=== PATIENT | female | born 1940 | race Caucasian/White ===

== ENCOUNTER 2016-05-30 16:24 | Emergency (ER) | payer MEDICARE, OTHER ==
--- NOTE | 2016-05-30 16:33 | ED.PDOC ---
History of Present Illness - General Chief Complaint: General Stated Complaint: sob Time Seen by Provider: 05/30/16 16:31 Source: patient, RN notes reviewed, Vital Signs reviewed, family - daughter Exam Limitations: no limitations - History of Present Illness Initial Comments: Ms. Vivar 75 y/o female with hx of copd/asthma daughter stated that she had started having sob since yesterday and got worse today using her breathing treatment xopenex multiple times today without relief. Timing/Duration: getting worse, other - 35 hours Severity: severe Improving Factors: nothing Worsening Factors: nothing Associated Symptoms: other - anxious Allergies/Adverse Reactions: Allergies Thiothixene [From Navane] Allergy (Unknown, Verified 04/28/16 18:53) Zolpidem [From Ambien] Allergy (Unknown, Verified 04/28/16 18:53) Diphenhydramine [From Benadryl] Adverse Reaction (Mild, Verified 04/28/16 18:53) Other Pt states that it makes her "loopy" per nurses notes. Temazepam [From Restoril] Adverse Reaction (Verified 04/28/16 18:53) Home Medications: Ambulatory Orders Arformoterol Tartrate [Brovana] 1 puff IN BID 10/30/13 Budesonide Inhaler [Pulmicort Flexhaler] 2 puff IN BID 10/30/13 Calcium Carbonate-Cholecalcife [Caltrate 600+D 600-800 mg-Unit] 1 tab PO BID Citalopram Hydrobromide [Celexa] 20 mg PO DAILY 10/30/13 Clopidogrel Bisulfate [Plavix] 75 mg PO DAILY 10/30/13 Coenzyme [id number] Oil-Vitamin [Co-Q 10 Norton-3 Fish Oil] 1 cap PO DAILY Furosemide [Lasix] 20 mg PO GOPAL-OTH-DAY 10/30/13 Levalbuterol Nebs [Xopenex NEBS] 1.25 mg NEB Q4H PRN 10/30/13 Levothyroxine Sodium [Synthroid] 125 mcg PO ACBK 10/30/13 Multiple Vitamins W/ Minerals [Centrum Silver] 1 ea PO DAILY 10/30/13 Olmesartan Medoxomil [Benicar] 40 mg PO DAILY 10/30/13 Pantoprazole Sodium [Protonix] 40 mg PO DAILY 10/30/13 Ascorbic Acid [Vitamin C] 500 mg PO BID 12/11/15 Cholecalciferol [Vitamin D-3] 2,000 unit PO DAILY 12/11/15 Cyanocobalamin [B-12 Compliance Injection] 1,000 mcg INJ MONTHLY 12/11/15 Roflumilast [Daliresp] 500 mcg PO DAILY 12/11/15 Metoprolol Tartrate 100 mg PO DAILY 12/13/15 Spiriva Respimat 2 puff INH DAILY 12/14/15 guaiFENesin ER TAB [Mucinex Tab] 600 mg PO BID #14 tab 12/14/15 Amlodipine Besylate 5 mg PO DAILY 05/30/16 Montelukast Sodium [Singulair] 10 mg PO DAILY 05/30/16 Zoledronic Acid [Zometa] 4 mg IV .[id number] 05/30/16 Review of Systems - Review of Systems Constitutional: States: no symptoms reported EENTM: States: no symptoms reported Respiratory: States: see HPI, short of breath Cardiology: States: palpitations Gastrointestinal/Abdominal: States: no symptoms reported, other - history of lower gi bleeding colonoscopy-bleeding internal hemorroids 2 weeks ago Genitourinary: States: no symptoms reported Past Medical History (General) - Patient Medical History Hx Seizures: No Hx Stroke: Yes Hx Asthma: Yes Hx of COPD: Yes Hx Cardiac Disorders: Yes - [place], stent Hx Congestive Heart Failure: Yes Hx Pacemaker: No Hx Hypertension: Yes Hx Thyroid Disease: Yes Hx Diabetes: No Hx Gastroesophageal Reflux: Yes 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 Hx Cancer: Yes - bone, breast Hx MRSA: No Surgical History: cholecystectomy - nephrectomy right,tahbso, other Other Surgeries:: cardiac stent, thyroidectomy,left mastectomy(breast cancer- post chemo/radn - Vaccination History Hx Tetanus, Diphtheria Vaccination: Yes Hx Influenza Vaccination: Yes Hx Pneumococcal Vaccination: Yes - Social History Hx Tobacco Use: No Hx Alcohol Use: No Hx Substance Use: No Hx Physical Abuse: No Hx Emotional Abuse: No - Activities of Daily Living Patient Lives Alone: No - with son Grooming Ability: Independent Eating (Feeding) Ability: Independent Toileting Ability: Standby Assistance Family Medical History - Family History Mother Family History: No Known Hx Family Congestive Heart Failure: Yes Hx Family Diabetes: Yes Father Living Status: Hx Family Asthma: No Hx Family Congestive Heart Failure: No Hx Family Hypertension: No Hx Family Stroke: No Hx Family Diabetes: No Hx Family Cancer: Yes Physical Exam - Physical Exam General Appearance: Alert, Anxious, Restless Ears, Nose, Throat: hearing grossly normal, normal ENT inspection, normal pharynx Neck: non-tender, supple, normal inspection, carotid bruit - bilateral Respiratory: decreased breath sounds, accessory muscle use, other - moderate respiratory distress Cardiovascular/Chest: normal peripheral pulses, no gallop, no murmur, tachycardia - HR-127 Gastrointestinal/Abdominal: normal bowel sounds, non tender, soft, no organomegaly Back Exam: no CVA tenderness, no vertebral tenderness Extremity: no pedal edema, no calf tenderness, normal capillary refill Neurologic: alert, oriented x 3 Skin Exam: normal color, warm/dry Lymphatic: no adenopathy Progress - Results/Orders Results/Orders: 05/30/16 16:36 SVN/Updraft Therapy .ONCE 05/30/16 17:15 EKG STAT 05/31/16 09:00 Updrafts Daily Laboratory Results WBC 18.6 K/mm3 (4.8-10.8) H 05/30/16 16:35 RBC 3.89 M/mm3 (4.20-5.40) L 05/30/16 16:35 Hgb 11.9 gm/dL (12.0-16.0) L 05/30/16 16:35 Hct 36.3 % (36.0-47.0) 05/30/16 16:35 MCV 93.3 fl (81.0-99.0) 05/30/16 16:35 MCH 30.5 pg (27.0-31.0) 05/30/16 16:35 MCHC 32.8 g/dL (33.0-37.0) L 05/30/16 16:35 RDW 14.1 % (11.5-14.5) 05/30/16 16:35 Plt Count 350 K/mm3 (130-400) 05/30/16 16:35 MPV 7.7 fl (7.40-10.4) 05/30/16 16:35 Absolute Neuts (auto) 13.30 K/uL (1.8-6.8) H 05/30/16 16:35 Absolute Lymphs (auto) 3.30 K/uL (1.0-3.4) 05/30/16 16:35 Absolute Monos (auto) 1.80 K/uL (0.2-0.8) H 05/30/16 16:35 Absolute Eos (auto) 0.10 K/uL (0.0-0.4) 05/30/16 16:35 Absolute Basos (auto) 0.10 K/uL (0.0-0.1) 05/30/16 16:35 Neutrophils % 71.2 % (42.0-78.0) 05/30/16 16:35 Lymphocytes % 17.7 % (20.0-50.0) L 05/30/16 16:35 Monocytes % 9.9 % (2.0-9.0) H 05/30/16 16:35 Eosinophils % 0.6 % (1.0-5.0) L 05/30/16 16:35 Basophils % 0.6 % (0.0-2.0) 05/30/16 16:35 Differential Comment Cancelled 05/30/16 16:35 RBC Morphology Cancelled 05/30/16 16:35 PT 11.8 SECONDS (9.4-12.5) 05/30/16 16:35 INR 1.050 05/30/16 16:35 PTT (SP) 36.8 SECONDS (25.1-36.5) H 05/30/16 16:35 D-Dimer, Quantitative 324 ng/mL (0-230) H* 05/30/16 16:35 Sodium 140 mmol/L (135-145) 05/30/16 16:35 Potassium 3.4 mmol/L (3.6-5.0) L 05/30/16 16:35 Chloride 104 mmol/L (101-111) 05/30/16 16:35 Carbon Dioxide 27 mmol/L (21-31) 05/30/16 16:35 Anion Gap 12.4 (12-18) 05/30/16 16:35 BUN 23 mg/dL (7-18) H 05/30/16 16:35 Creatinine 1.67 mg/dL (0.6-1.3) H 05/30/16 16:35 BUN/Creatinine Ratio 13.8 (10-20) 05/30/16 16:35 Random Glucose 188 mg/dL (70-105) H 05/30/16 16:35 Serum Osmolality 288.1 mOsm/L (275-295) 05/30/16 16:35 Calcium 9.3 mg/dL (8.4-10.2) 05/30/16 16:35 Magnesium 2.2 mg/dL (1.8-2.5) 05/30/16 16:35 Total Bilirubin 0.5 mg/dL (0.2-1.0) 05/30/16 16:35 Direct Bilirubin 0.1 mg/dL (0-0.2) 05/30/16 16:35 Indirect Bilirubin 0.4 mg/dL (0.2-0.8) 05/30/16 16:35 AST 30 IU/L (10-42) 05/30/16 16:35 ALT 18 IU/L (10-60) 05/30/16 16:35 Alkaline Phosphatase 104 IU/L (42-121) 05/30/16 16:35 Creatine Kinase 98 IU/L (26-140) 05/30/16 16:35 CK-MB (CK-2) 5.9 ng/mL (0.0-4.4) H* 05/30/16 16:35 CK-MB (CK-2) % Not Reportable 05/30/16 16:35 Troponin I 0.38 ng/mL (0.01-0.05) H* 05/30/16 16:35 B-Natriuretic Peptide 2930.0 pg/ml (0-100) H* 05/30/16 16:35 Serum Total Protein 7.4 gm/dL (6.4-8.2) 05/30/16 16:35 Albumin 3.8 g/dl (3.2-5.5) 05/30/16 16:35 Globulin Cancelled 05/30/16 16:35 Albumin/Globulin Ratio Cancelled 05/30/16 16:35 - EKG/XRAY/CT EKG: Tachy, ST depression XRAY: chest - cardiomegaly,chf Departure - Departure Clinical Impression: Dyspnea due to congestive heart failure, NSTEMI, initial episode of care, COPD (chronic obstructive pulmonary disease) with chronic bronchitis, Renal insufficiency Time of Disposition: 18:40 - D/W Dr. Carlos bucio md [facility] Disposition: Transfer to Hospital Condition: Fair Home Medications: Ambulatory Orders Arformoterol Tartrate [Brovana] 1 puff IN BID 10/30/13 Budesonide Inhaler [Pulmicort Flexhaler] 2 puff IN BID 10/30/13 Calcium Carbonate-Cholecalcife [Caltrate 600+D 600-800 mg-Unit] 1 tab PO BID Citalopram Hydrobromide [Celexa] 20 mg PO DAILY 10/30/13 Clopidogrel Bisulfate [Plavix] 75 mg PO DAILY 10/30/13 Coenzyme [id number] Oil-Vitamin [Co-Q 10 Norton-3 Fish Oil] 1 cap PO DAILY Furosemide [Lasix] 20 mg PO GOPAL-OTH-DAY 10/30/13 Levalbuterol Nebs [Xopenex NEBS] 1.25 mg NEB Q4H PRN 10/30/13 Levothyroxine Sodium [Synthroid] 125 mcg PO ACBK 10/30/13 Multiple Vitamins W/ Minerals [Centrum Silver] 1 ea PO DAILY 10/30/13 Olmesartan Medoxomil [Benicar] 40 mg PO DAILY 10/30/13 Pantoprazole Sodium [Protonix] 40 mg PO DAILY 10/30/13 Ascorbic Acid [Vitamin C] 500 mg PO BID 12/11/15 Cholecalciferol [Vitamin D-3] 2,000 unit PO DAILY 12/11/15 Cyanocobalamin [B-12 Compliance Injection] 1,000 mcg INJ MONTHLY 12/11/15 Roflumilast [Daliresp] 500 mcg PO DAILY 12/11/15 Metoprolol Tartrate 100 mg PO DAILY 12/13/15 Spiriva Respimat 2 puff INH DAILY 12/14/15 guaiFENesin ER TAB [Mucinex Tab] 600 mg PO BID #14 tab 12/14/15 Amlodipine Besylate 5 mg PO DAILY 05/30/16 Montelukast Sodium [Singulair] 10 mg PO DAILY 05/30/16 Zoledronic Acid [Zometa] 4 mg IV .[id number] 05/30/16
[2016-05-30] MEDS ORDERED: IPRATROPIUM/ALBUTEROL 3 ML VIAL NEB ONE (16:34)
[2016-05-30] MEDS ORDERED: methylPREDNISolone SODIUM SUC 125 MG/2 ML VIAL IM ONE (16:36)
[2016-05-30] MEDS ORDERED: methylPREDNISolone SODIUM SUC 125 MG/2 ML VIAL IV ONE (16:42)
[2016-05-30] MEDS ORDERED: LEVALBUTEROL NEBS 1.25 MG/3 ML VIAL NEB ONE (16:51)
[2016-05-30 17:00] VITALS: TEMP 99.4
--- NOTE | 2016-05-30 17:02 | RAD ---
EXAM DESCRIPTION: XR CHEST 1 VIEW CLINICAL HISTORY: sob COMPARISON: 28 April 2016. 07 May 2016 TECHNIQUE: AP portable chest FINDINGS: Cardiomegaly is evident. Diffuse interstitial lung disease and pulmonary vascular congestion are observed. There has been an interval deterioration in aeration the chest since the more recent exam. The findings are consistent with congestive heart failure/pulmonary edema. IMPRESSION: Findings of congestive heart failure demonstrated. Electronically signed by: Ja Resendez MD 05/30/2016 17:00
[2016-05-30] MEDS ORDERED: ASPIRIN (CHEWABLE) 81 MG TAB PO ONE (17:23)
[2016-05-30] MEDS ORDERED: BUMETANIDE 0.25 MG/ML VIAL IV ONE (18:00)
[2016-05-30] MEDS: NITROGLYCERIN 0.4 MG/HR PATCH TOP ONE ×2 (18:04→18:10)
[2016-05-30] MEDS ORDERED: NITROGLYCERIN/D5W IV 250 ML IVS SCH (18:30)
[2016-05-30 19:35] VITALS: BP 172/78; O2SAT 96
== END 2016-05-30 19:35 | disposition short-term general hospital (02) ==
LOC: ER 16:24
DX: I21.4 Non-ST elevation (NSTEMI) myocardial infarction (principal); I13.0 Hypertensive heart and chronic kidney disease with heart failure and stage 1 through stage 4 chronic kidney disease, or unspecified chronic kidney disease; I50.9 Heart failure, unspecified; N28.9 Disorder of kidney and ureter, unspecified; J44.9 Chronic obstructive pulmonary disease, unspecified; E07.9 Disorder of thyroid, unspecified; Z90.5 Acquired absence of kidney; Z85.3 Personal history of malignant neoplasm of breast; Z85.830 Personal history of malignant neoplasm of bone; Z90.12 Acquired absence of left breast and nipple; Z79.899 Other long term (current) drug therapy; Z88.8 Allergy status to other drugs, medicaments and biological substances
CPT/HCPCS: 36415; 71010; 80048; 80076; 82550; 82553; 83880; 84484; 85025; 85379; 85610; 85730; 93005; 94640; J2060; J2930; J3490; J7614

== ENCOUNTER 2016-06-18 21:16 | Emergency (ER) | payer MEDICARE, OTHER ==
[2016-06-18 21:40] VITALS: TEMP 97.8
[2016-06-18] MEDS ORDERED: OXYMETAZOLINE NASAL SPRAY 15 ML BTTL ONE (21:53)
--- NOTE | 2016-06-18 23:16 | ED.PDOC ---
History of Present Illness - General Chief Complaint: ENT Problem Stated Complaint: nosebleed Time Seen by Provider: 06/18/16 21:27 Source: patient, RN notes reviewed, Vital Signs reviewed, family Exam Limitations: no limitations - History of Present Illness Initial Comments: Patient is a 76 y/o female who has a nosebleed x 1 hour. She is on Plavix. She got out of the hospital yesterday due to pneumonia. She is O2 dependent. Patient had some dry mucous in her nose and tried to get it out and scratched the mucosa with her fingernail. She has had a nosebleed previously which required packing. Timing/Duration: 1 hour Severity: moderate Improving Factors: nothing Worsening Factors: nothing Associated Symptoms: shortness of breath, other Allergies/Adverse Reactions: Allergies Thiothixene [From Navane] Allergy (Unknown, Verified 04/28/16 18:53) Zolpidem [From Ambien] Allergy (Unknown, Verified 04/28/16 18:53) Lorazepam [From Ativan] Allergy (Verified 06/18/16 21:26) Diphenhydramine [From Benadryl] Adverse Reaction (Mild, Verified 04/28/16 18:53) Other Pt states that it makes her "loopy" per nurses notes. Temazepam [From Restoril] Adverse Reaction (Verified 04/28/16 18:53) Home Medications: Ambulatory Orders Arformoterol Tartrate [Brovana] 1 puff IN BID 10/30/13 Budesonide Inhaler [Pulmicort Flexhaler] 2 puff IN BID 10/30/13 Calcium Carbonate-Cholecalcife [Caltrate 600+D 600-800 mg-Unit] 1 tab PO BID Citalopram Hydrobromide [Celexa] 20 mg PO DAILY 10/30/13 Clopidogrel Bisulfate [Plavix] 75 mg PO DAILY 10/30/13 Coenzyme W25-Eduu Oil-Vitamin [Co-Q 10 Lawn-3 Fish Oil] 1 cap PO DAILY Furosemide [Lasix] 20 mg PO GOPAL-OTH-DAY 10/30/13 Levalbuterol Nebs [Xopenex NEBS] 1.25 mg NEB Q4H PRN 10/30/13 Levothyroxine Sodium [Synthroid] 125 mcg PO ACBK 10/30/13 Multiple Vitamins W/ Minerals [Centrum Silver] 1 ea PO DAILY 10/30/13 Olmesartan Medoxomil [Benicar] 40 mg PO DAILY 10/30/13 Pantoprazole Sodium [Protonix] 40 mg PO DAILY 10/30/13 Ascorbic Acid [Vitamin C] 500 mg PO BID 12/11/15 Cholecalciferol [Vitamin D-3] 2,000 unit PO DAILY 12/11/15 Cyanocobalamin [B-12 Compliance Injection] 1,000 mcg INJ MONTHLY 12/11/15 Roflumilast [Daliresp] 500 mcg PO DAILY 12/11/15 Metoprolol Tartrate 100 mg PO DAILY 12/13/15 Spiriva Respimat 2 puff INH DAILY 12/14/15 guaiFENesin ER TAB [Mucinex Tab] 600 mg PO BID #14 tab 12/14/15 Amlodipine Besylate 5 mg PO DAILY 05/30/16 Montelukast Sodium [Singulair] 10 mg PO DAILY 05/30/16 Zoledronic Acid [Zometa] 4 mg IV .[id number] 05/30/16 Review of Systems - Review of Systems Constitutional: States: weakness EENTM: States: other - nose bleed Respiratory: States: cough, short of breath Cardiology: States: no symptoms reported Gastrointestinal/Abdominal: States: no symptoms reported Genitourinary: States: no symptoms reported Musculoskeletal: States: no symptoms reported Skin: States: no symptoms reported Neurological: States: weakness Endocrine: States: no symptoms reported Hematologic/Lymphatic: States: anemia All other Systems: Reviewed and Negative Past Medical History (General) - Patient Medical History Hx Seizures: No Hx Stroke: Yes Hx Asthma: Yes Hx of COPD: Yes Hx Cardiac Disorders: Yes - [place], stent Hx Congestive Heart Failure: Yes Hx Pacemaker: No Hx Hypertension: Yes Hx Thyroid Disease: Yes Hx Diabetes: No Hx Gastroesophageal Reflux: Yes 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 Hx Cancer: Yes - bone, breast Hx MRSA: No Surgical History: cholecystectomy, other - Vaccination History Hx Tetanus, Diphtheria Vaccination: Yes Hx Influenza Vaccination: Yes Hx Pneumococcal Vaccination: Yes - Social History Hx Tobacco Use: No Hx Alcohol Use: No Hx Substance Use: No Hx Physical Abuse: No Hx Emotional Abuse: No Family Medical History - Family History Mother Family History: No Known Hx Family Congestive Heart Failure: Yes Hx Family Diabetes: Yes Father Living Status: Hx Family Asthma: No Hx Family Congestive Heart Failure: No Hx Family Hypertension: No Hx Family Stroke: No Hx Family Diabetes: No Hx Family Cancer: Yes Physical Exam - Physical Exam General Appearance: Alert, Anxious, Frail, No apparent distress Eye Exam: bilateral normal Ears, Nose, Throat: hearing grossly normal, other - nasal mucosal abrasion anterior medial nasal mucosa with active bleeding Respiratory: lungs clear, normal breath sounds, no respiratory distress Cardiovascular/Chest: regular rate, rhythm, no edema, no gallop, no murmur Gastrointestinal/Abdominal: normal bowel sounds, non tender, soft, no organomegaly Extremity: no pedal edema, no calf tenderness Neurologic: alert, normal mood/affect, oriented x 3 Skin Exam: normal color, warm/dry Progress - Results/Orders Results/Orders: 06/18/16 06/18/16 21:27 22:27 Temperature 97.8 F Pulse Rate [ 60 59 L left] Respiratory 14 14 Rate Blood Pressure 150/61 171/69 [left] O2 Sat by Pulse 95 95 Oximetry Laboratory Results Hgb 8.2 gm/dL (12.0-16.0) L 06/18/16 22:35 Hct 24.8 % (36.0-47.0) L 06/18/16 22:35 Departure - Departure Clinical Impression: Anterior epistaxis, Anemia Time of Disposition: 23:31 Disposition: Discharge to Home or Self Care Condition: Good Departure Forms: ED Discharge - Pt. Copy, Patient Portal Self Enrollment Instructions: Nosebleed, DI for Nosebleed Diet: resume usual diet Referrals: Fam Lai MD [Primary Care Provider] - 1-2 Weeks Home Medications: Ambulatory Orders Arformoterol Tartrate [Brovana] 1 puff IN BID 10/30/13 Budesonide Inhaler [Pulmicort Flexhaler] 2 puff IN BID 10/30/13 Calcium Carbonate-Cholecalcife [Caltrate 600+D 600-800 mg-Unit] 1 tab PO BID Citalopram Hydrobromide [Celexa] 20 mg PO DAILY 10/30/13 Clopidogrel Bisulfate [Plavix] 75 mg PO DAILY 10/30/13 Coenzyme H53-Ayjx Oil-Vitamin [Co-Q 10 Lawn-3 Fish Oil] 1 cap PO DAILY Furosemide [Lasix] 20 mg PO GOPAL-OTH-DAY 10/30/13 Levalbuterol Nebs [Xopenex NEBS] 1.25 mg NEB Q4H PRN 10/30/13 Levothyroxine Sodium [Synthroid] 125 mcg PO ACBK 10/30/13 Multiple Vitamins W/ Minerals [Centrum Silver] 1 ea PO DAILY 10/30/13 Olmesartan Medoxomil [Benicar] 40 mg PO DAILY 10/30/13 Pantoprazole Sodium [Protonix] 40 mg PO DAILY 10/30/13 Ascorbic Acid [Vitamin C] 500 mg PO BID 12/11/15 Cholecalciferol [Vitamin D-3] 2,000 unit PO DAILY 12/11/15 Cyanocobalamin [B-12 Compliance Injection] 1,000 mcg INJ MONTHLY 12/11/15 Roflumilast [Daliresp] 500 mcg PO DAILY 12/11/15 Metoprolol Tartrate 100 mg PO DAILY 12/13/15 Spiriva Respimat 2 puff INH DAILY 12/14/15 guaiFENesin ER TAB [Mucinex Tab] 600 mg PO BID #14 tab 12/14/15 Amlodipine Besylate 5 mg PO DAILY 05/30/16 Montelukast Sodium [Singulair] 10 mg PO DAILY 05/30/16 Zoledronic Acid [Zometa] 4 mg IV .[id number] 05/30/16 Additional Instructions: Stop Plavix for 3 days. Wear oxygen cannula so it blows in mouth. Cool mist humidifier with distilled water. If nose starts bleeding again: 2 sprays Afrin Wet gauze with Afrin Put a dot of gel on end Insert into nose Put nose clip on Leave for at least 20 minutes If bleeding does not stop or becomes severe, return to ED. Discuss blood pressure medications with PCP. Have PCP repeat hemoglobin.
[2016-06-19] VITALS: BP 148/54; O2SAT 94
== END 2016-06-19 00:03 | disposition home or self-care (01) ==
LOC: ER 21:16
DX: R04.0 Epistaxis (principal); D64.9 Anemia, unspecified; I11.0 Hypertensive heart disease with heart failure; I50.9 Heart failure, unspecified; J44.9 Chronic obstructive pulmonary disease, unspecified; Z86.73 Personal history of transient ischemic attack (TIA), and cerebral infarction without residual deficits; I25.2 Old myocardial infarction; Z90.5 Acquired absence of kidney; K21.9 Gastro-esophageal reflux disease without esophagitis; Z85.3 Personal history of malignant neoplasm of breast; Z85.830 Personal history of malignant neoplasm of bone; Z79.02 Long term (current) use of antithrombotics/antiplatelets; Z79.899 Other long term (current) drug therapy; Z88.8 Allergy status to other drugs, medicaments and biological substances; Z99.81 Dependence on supplemental oxygen

== ENCOUNTER 2016-06-19 05:33 | Observation (INO) | payer MEDICARE, OTHER ==
[2016-06-19] MEDS ORDERED: SODIUM CHLORIDE 0.9% (FLUSH) 10 ML SYG IV PRN ×2 (05:38→10:23)
--- NOTE | 2016-06-19 05:55 | ED.PDOC ---
History of Present Illness - General Chief Complaint: Respiratory Problem Stated Complaint: difficulty breathing Time Seen by Provider: 06/19/16 05:38 Source: patient, RN notes reviewed, Vital Signs reviewed, family Exam Limitations: no limitations - History of Present Illness Initial Comments: Patient is a 76 y/o female who was seen early this AM in the ED for epistaxis. The nosebleed was stopped and patient was discharged home. However, just [employer], Patient had an incident of hypoxemia where her O2 went to the 70s (77) and she had severe dyspnea. Patient was discharged from [facility] on 06/17/2016 for pneumonia. She is currently on O2 at home, although she was not on O2 prior to her admission. She also has a history of anemia and received two infusions of iron in the hospital. Her last Hb in the hospital was 9.0. Earlier today, it was 8.2. Timing/Duration: 1 hour Severity: severe Worsening Factors: medication Associated Symptoms: cough, shortness of breath, weakness Allergies/Adverse Reactions: Allergies Thiothixene [From Navane] Allergy (Unknown, Verified 04/28/16 18:53) Zolpidem [From Ambien] Allergy (Unknown, Verified 04/28/16 18:53) Lorazepam [From Ativan] Allergy (Verified 06/18/16 21:26) Diphenhydramine [From Benadryl] Adverse Reaction (Mild, Verified 04/28/16 18:53) Other Pt states that it makes her "loopy" per nurses notes. Temazepam [From Restoril] Adverse Reaction (Verified 04/28/16 18:53) Home Medications: Ambulatory Orders Arformoterol Tartrate [Brovana] 1 puff IN BID 10/30/13 Budesonide Inhaler [Pulmicort Flexhaler] 2 puff IN BID 10/30/13 Calcium Carbonate-Cholecalcife [Caltrate 600+D 600-800 mg-Unit] 1 tab PO BID Citalopram Hydrobromide [Celexa] 20 mg PO DAILY 10/30/13 Clopidogrel Bisulfate [Plavix] 75 mg PO DAILY 10/30/13 Coenzyme [id number] Oil-Vitamin [Co-Q 10 Orick-3 Fish Oil] 1 cap PO DAILY Furosemide [Lasix] 20 mg PO GOPAL-OTH-DAY 10/30/13 Levalbuterol Nebs [Xopenex NEBS] 1.25 mg NEB Q4H PRN 10/30/13 Levothyroxine Sodium [Synthroid] 125 mcg PO ACBK 10/30/13 Multiple Vitamins W/ Minerals [Centrum Silver] 1 ea PO DAILY 10/30/13 Olmesartan Medoxomil [Benicar] 40 mg PO DAILY 10/30/13 Pantoprazole Sodium [Protonix] 40 mg PO DAILY 10/30/13 Ascorbic Acid [Vitamin C] 500 mg PO BID 12/11/15 Cholecalciferol [Vitamin D-3] 2,000 unit PO DAILY 12/11/15 Cyanocobalamin [B-12 Compliance Injection] 1,000 mcg INJ MONTHLY 12/11/15 Roflumilast [Daliresp] 500 mcg PO DAILY 12/11/15 Metoprolol Tartrate 100 mg PO DAILY 12/13/15 Spiriva Respimat 2 puff INH DAILY 12/14/15 guaiFENesin ER TAB [Mucinex Tab] 600 mg PO BID #14 tab 12/14/15 Amlodipine Besylate 5 mg PO DAILY 05/30/16 Montelukast Sodium [Singulair] 10 mg PO DAILY 05/30/16 Zoledronic Acid [Zometa] 4 mg IV .[id number] 05/30/16 Review of Systems - Review of Systems Constitutional: States: malaise, weakness EENTM: States: other - nosebleed Respiratory: States: cough, short of breath, wheezing Cardiology: States: no symptoms reported Gastrointestinal/Abdominal: States: no symptoms reported Genitourinary: States: no symptoms reported Musculoskeletal: States: no symptoms reported Skin: States: no symptoms reported Neurological: States: weakness Endocrine: States: no symptoms reported Hematologic/Lymphatic: States: anemia Past Medical History (General) - Patient Medical History Hx Seizures: No Hx Stroke: Yes Hx Asthma: Yes Hx of COPD: Yes Hx Cardiac Disorders: Yes - IA, stent Hx Congestive Heart Failure: Yes Hx Pacemaker: No Hx Hypertension: Yes Hx Thyroid Disease: Yes Hx Diabetes: No Hx Gastroesophageal Reflux: Yes 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 Hx Cancer: Yes - bone, breast Hx MRSA: No - Vaccination History Hx Tetanus, Diphtheria Vaccination: Yes Hx Influenza Vaccination: Yes Hx Pneumococcal Vaccination: Yes - Social History Hx Tobacco Use: No Hx Alcohol Use: No Hx Substance Use: No Hx Physical Abuse: No Hx Emotional Abuse: No Family Medical History - Family History Mother Family History: No Known Hx Family Congestive Heart Failure: Yes Hx Family Diabetes: Yes Father Living Status: Hx Family Asthma: No Hx Family Congestive Heart Failure: No Hx Family Hypertension: No Hx Family Stroke: No Hx Family Diabetes: No Hx Family Cancer: Yes Physical Exam - Physical Exam General Appearance: Anxious, Frail, Obvious distress Ears, Nose, Throat: hearing grossly normal, normal ENT inspection Respiratory: respiratory distress, decreased breath sounds, accessory muscle use Cardiovascular/Chest: regular rate, rhythm, no edema, systolic murmur - III/ Gastrointestinal/Abdominal: normal bowel sounds, non tender, soft, no organomegaly Extremity: non-tender, no calf tenderness Neurologic: alert, normal mood/affect, oriented x 3 Skin Exam: pallor Progress - Results/Orders Results/Orders: 06/19/16 06/19/16 05:39 06:01 Temperature 97.9 F Pulse Rate [ 97 H left] Respiratory 24 Rate Blood Pressure 174/69 [left] O2 Sat by Pulse 98 93 L Oximetry 06/19/16 05:38 IV Care:Saline Lock per Protoc QSHIFT Telemetry .ONCE Sodium Chloride 0.9% (Flush) [Saline Flush Syringe] 10 ml IV PRN PRN EKG Stat Pulse Ox Stat Chest,1 View [RAD] Stat 06/19/16 09:00 Oxygen Daily Laboratory Results WBC 10.3 K/mm3 (4.8-10.8) 06/19/16 05:50 RBC 3.20 M/mm3 (4.20-5.40) L 06/19/16 05:50 Hgb 9.5 gm/dL (12.0-16.0) L 06/19/16 05:50 Hct 29.5 % (36.0-47.0) L 06/19/16 05:50 MCV 92.0 fl (81.0-99.0) 06/19/16 05:50 MCH 29.6 pg (27.0-31.0) 06/19/16 05:50 MCHC 32.2 g/dL (33.0-37.0) L 06/19/16 05:50 RDW 14.1 % (11.5-14.5) 06/19/16 05:50 Plt Count 322 K/mm3 (130-400) 06/19/16 05:50 MPV 7.1 fl (7.40-10.4) L 06/19/16 05:50 Absolute Neuts (auto) 7.70 K/uL (1.8-6.8) H 06/19/16 05:50 Absolute Lymphs (auto) 2.00 K/uL (1.0-3.4) 06/19/16 05:50 Absolute Monos (auto) 0.40 K/uL (0.2-0.8) 06/19/16 05:50 Absolute Eos (auto) 0.10 K/uL (0.0-0.4) 06/19/16 05:50 Absolute Basos (auto) 0.10 K/uL (0.0-0.1) 06/19/16 05:50 Neutrophils % 75.1 % (42.0-78.0) 06/19/16 05:50 Lymphocytes % 19.3 % (20.0-50.0) L 06/19/16 05:50 Monocytes % 4.0 % (2.0-9.0) 06/19/16 05:50 Eosinophils % 0.9 % (1.0-5.0) L 06/19/16 05:50 Basophils % 0.7 % (0.0-2.0) 06/19/16 05:50 PT 11.8 SECONDS (9.4-12.5) 06/19/16 05:50 INR 1.040 06/19/16 05:50 PTT (SP) 32.1 SECONDS (25.1-36.5) 06/19/16 05:50 D-Dimer, Quantitative 285 ng/mL (0-230) H* 06/19/16 05:50 Sodium 142 mmol/L (135-145) 06/19/16 05:50 Potassium 3.4 mmol/L (3.6-5.0) L 06/19/16 05:50 Chloride 102 mmol/L (101-111) 06/19/16 05:50 Carbon Dioxide 30 mmol/L (21-31) 06/19/16 05:50 Anion Gap 13.4 (12-18) 06/19/16 05:50 BUN 32 mg/dL (7-18) H 06/19/16 05:50 Creatinine 1.45 mg/dL (0.6-1.3) H 06/19/16 05:50 BUN/Creatinine Ratio 22.1 (10-20) H 06/19/16 05:50 Random Glucose 137 mg/dL (70-105) H 06/19/16 05:50 Serum Osmolality 292.2 mOsm/L (275-295) 06/19/16 05:50 Calcium 8.9 mg/dL (8.4-10.2) 06/19/16 05:50 Magnesium 1.9 mg/dL (1.8-2.5) 06/19/16 05:50 Total Bilirubin 0.5 mg/dL (0.2-1.0) 06/19/16 05:50 Direct Bilirubin 0.1 mg/dL (0-0.2) 06/19/16 05:50 Indirect Bilirubin 0.4 mg/dL (0.2-0.8) 06/19/16 05:50 AST 57 IU/L (10-42) H 06/19/16 05:50 ALT 36 IU/L (10-60) 06/19/16 05:50 Alkaline Phosphatase 183 IU/L (42-121) H 06/19/16 05:50 Creatine Kinase 57 IU/L (26-140) 06/19/16 05:50 CK-MB (CK-2) 3.0 ng/mL (0.0-4.4) 06/19/16 05:50 CK-MB (CK-2) % Not Reportable 06/19/16 05:50 Troponin I 0.04 ng/mL (0.01-0.05) 06/19/16 05:50 B-Natriuretic Peptide 1310.0 pg/ml (0-100) H* 06/19/16 05:50 Serum Total Protein 6.3 gm/dL (6.4-8.2) L 06/19/16 05:50 Albumin 3.3 g/dl (3.2-5.5) 06/19/16 05:50 - EKG/XRAY/CT EKG: Sinus - 92 bpm, ST depression - lead V5, Changed from - 05/30/16 - tachycardia resolved Comments: NML axis, PACs, normal intervals, abnormal EKG Departure - Departure Clinical Impression: CHF exacerbation COPD (chronic obstructive pulmonary disease) Qualifiers: COPD type: unspecified COPD Qualifier Code: (J44.9) Chronic obstructive pulmonary disease, unspecified Anemia Qualifiers: Anemia type: iron deficiency Iron deficiency anemia type: unspecified iron deficiency Qualifier Code: (D50.9) Iron deficiency anemia, unspecified Time of Disposition: 06:48 Disposition: Admit Patient Condition: Good Home Medications: Ambulatory Orders Arformoterol Tartrate [Brovana] 1 puff IN BID 10/30/13 Budesonide Inhaler [Pulmicort Flexhaler] 2 puff IN BID 10/30/13 Calcium Carbonate-Cholecalcife [Caltrate 600+D 600-800 mg-Unit] 1 tab PO BID Citalopram Hydrobromide [Celexa] 20 mg PO DAILY 10/30/13 Clopidogrel Bisulfate [Plavix] 75 mg PO DAILY 10/30/13 Coenzyme [id number] Oil-Vitamin [Co-Q 10 Orick-3 Fish Oil] 1 cap PO DAILY Furosemide [Lasix] 20 mg PO GOPAL-OTH-DAY 10/30/13 Levalbuterol Nebs [Xopenex NEBS] 1.25 mg NEB Q4H PRN 10/30/13 Levothyroxine Sodium [Synthroid] 125 mcg PO ACBK 10/30/13 Multiple Vitamins W/ Minerals [Centrum Silver] 1 ea PO DAILY 10/30/13 Olmesartan Medoxomil [Benicar] 40 mg PO DAILY 10/30/13 Pantoprazole Sodium [Protonix] 40 mg PO DAILY 10/30/13 Ascorbic Acid [Vitamin C] 500 mg PO BID 12/11/15 Cholecalciferol [Vitamin D-3] 2,000 unit PO DAILY 12/11/15 Cyanocobalamin [B-12 Compliance Injection] 1,000 mcg INJ MONTHLY 12/11/15 Roflumilast [Daliresp] 500 mcg PO DAILY 12/11/15 Metoprolol Tartrate 100 mg PO DAILY 12/13/15 Spiriva Respimat 2 puff INH DAILY 12/14/15 guaiFENesin ER TAB [Mucinex Tab] 600 mg PO BID #14 tab 12/14/15 Amlodipine Besylate 5 mg PO DAILY 05/30/16 Montelukast Sodium [Singulair] 10 mg PO DAILY 05/30/16 Zoledronic Acid [Zometa] 4 mg IV .[id number] 05/30/16 Decision To Admit - Decistion To Admit Decision to Admit Reason: Admit from ER Decision to Admit Date: 06/19/16 Decision to Admit Time: 06:30
[2016-06-19] MEDS ORDERED: FUROSEMIDE INJ 40 MG/4 ML VIAL IV ONE (06:50)
[2016-06-19] MEDS ORDERED: SODIUM CHLORIDE 0.9% 10 ML VIAL ONE (07:00)
--- NOTE | 2016-06-19 07:44 | HP ---
SUPERVISING PHYSICIAN: Amauri Cruz MD CHIEF COMPLAINT: Difficulty breathing. HISTORY OF PRESENT ILLNESS: Ms. Vivar is a 76-year-old, female who presented initially to the Emergency Department early in the AM on day of admission for a nosebleed and then was discharged home. She went home and in the middle of the night, again, she had an incident of hypoxemia where her family noted she was severely dyspneic with O2 sats at home in the 70s. The patient has a history of just being recently discharged from [facility] on 06/17/16 for treatment of severe community acquired pneumonia and continued rehabilitation. The family notes she was doing fairly well after admission, but again prior to admission to the Emergency Department on 06/19/16 , had a severe episode of dyspnea where she was unable to lay down due to shortness of breath. In the Emergency Department, laboratory studies were completed. She had a white count of 10.0, hemoglobin 9.5, hematocrit 29.5, differential within normal limits. Coagulation studies were within normal limits with slightly elevated D-dimer of 285. Chemistries did reveal elevated BNP at 1310. Troponin 0.04. Electrolytes were normal with BUN 32, creatinine 1.45. The patient was given 40 mg of Lasix IV and continued on oxygen as she is at home, resulting in improvement of O2 saturation into the mid-90s. EKG showed a sinus rhythm with no ST depression. Given the patients longstanding history of recent hospitalization and history of congestive heart failure now with an elevated BNP and exacerbation of her congestive heart failure resulting in severe dyspnea with reported saturations in the 70s, the patient is going to be placed in observation for continued monitoring and treatment. She was admitted in stable condition. PAST MEDICAL HISTORY: 1. Congestive heart failure, diastolic, likely large component due to cor pulmonale with current ejection fraction unknown. 2. Chronic obstructive pulmonary disease with recent exacerbation and community acquired pneumonia being treated at [facility] with continued transition of care through rehab facility at [facility], but recently discharged on 06/17/16. 3. Hypertension. 4. Hypothyroidism. 5. Coronary artery disease. 6. Chronic renal insufficiency. 7. History of gout. 8. History of breast cancer diagnosed in 2012, stage IV with bone metastasis, followed by oncology. 9. History of thyroid cancer with surgical resection. 10. Chronic anemia. PAST SURGICAL HISTORY: 1. Appendectomy. 2. Hysterectomy with bilateral salpingo-oophorectomy. 3. Tonsillectomy and adenoidectomy. 4. Cholecystectomy. 5. Mastectomy in 2013 of the left breast. 6. Thyroidectomy. 7. Right nephrectomy secondary to a benign tumor. CURRENT MEDICATIONS: Please see updated list of current medications in the electronic medical record. ALLERGIES: THIOTHIXENE, ZOLPIDEM, LORAZEPAM, DIPHENHYDRAMINE, TEMAZEPAM. FAMILY HISTORY: Father decreased from cancer, unknown type. Mother from myocardial infarction. SOCIAL HISTORY: The patient is . She lives in [place]. She does have a history of previous tobacco abuse, but quit smoking in 1979. She drinks alcohol very infrequently. REVIEW OF SYSTEMS: CONSTITUTIONAL: Continued malaise and general weakness, but denies any fever. HEENT: Recent episode of epistaxis. RESPIRATORY: As noted in history of present illness, severe shortness of breath , but no hemoptysis. CARDIOVASCULAR: Denies chest pain or palpitations. GASTROINTESTINAL: Denies nausea or vomiting. No abdominal pain or rectal bleeding. MUSCULOSKELETAL: Generalized aches, weakness as noted in history of present illness. NEUROLOGIC: No history of seizures, syncopal episodes, dizziness, or headaches. History of recent dysarthria and cognitive deficits which have resolved after a rehabilitation at [facility]. INTEGUMENTARY: No decubitus ulcers or lesions or rashes. PSYCHIATRIC: No history of depression, but does have anxiety. PHYSICAL EXAMINATION: VITAL SIGNS: Temperature 97.9. Pulse 97. Blood pressure 174/69. Respirations 24 with labored respirations using accessory muscles, showing 93% nasal cannula on 2 liters at rest. Admission weight 56.2 kg. GENERAL: On admission to the Medical/Surgical Floor, the patient was in no apparent distress. She was alert and oriented times three. She does appear very frail and is somewhat anxious at times. HEENT: Tympanic membranes clear bilaterally. Oropharynx is pink, moist without any lesions. Nasal mucosa shows no obvious bleeding or ulcerations. NECK: No jugular venous distention noted. CHEST: Breath sounds are decreased towards the bases, but no obvious wheezing, rhonchi or rales. CARDIOVASCULAR: Regular rate and rhythm without any appreciable gallops or rubs. She does have a systolic murmur, grade III/IV. ABDOMEN: Soft, nontender. Positive bowel sounds. EXTREMITIES: There is no cyanosis, clubbing or edema. NEUROLOGIC: The patient is alert and oriented times three. Cranial nerves II- XII are grossly intact. Facial features are symmetrical. Extraocular movements are within normal limits. There is no nystagmus noted. There are no notable localizing or focalizing neuromotor deficits. LABORATORY: CBC showed white count 10.3, hemoglobin 9.5, hematocrit 29.5, platelet count 322,000. Differential within normal limits. Coagulation studies showed slightly elevated D-dimer at 285 with PT and PT-T within normal limits. Chemistries showed low potassium 3.4, otherwise electrolytes within normal limits. BUN 32, creatinine 1.45, glucose 137. Liver functions show just a mildly elevated AST and alkaline phosphatase 183. Troponin 0.04. BNP elevated at 1310. Urinalysis within normal limits. RADIOLOGY: Chest x-ray with small bilateral pleural effusions per radiology interpretation. Please refer to final report for full details. ASSESSMENT: 1. Acute on chronic exacerbation of congestive heart failure with currently elevated BNP, likely attributed to extensive hospitalization with multiple fluids and IV antibiotics. 2. History of recent community acquired pneumonia resulting in sepsis requiring a lengthy hospitalization at [facility] and then rehabilitation at [facility]. 3. Chronic obstructive pulmonary disease with a recent acute exacerbation as noted with recent community acquired pneumonia and sepsis, now resolved. 4. Hypertension. 5. Anemia of chronic disease. 6. Coronary artery disease. 7. Stage IV breast cancer with metastasis under oncology treatment. 8. Hypothyroidism. 9. History of thyroid cancer status post thyroidectomy. 10. Mild chronic renal failure. 11. Solitary left kidney status post right nephrectomy. 12. Gastroesophageal reflux disease. 13. Generalized anxiety disorder and depression. PLAN: The patient will be placed in observation from the Emergency Department. She was given 40 mg of Lasix IV prior to admission. She will be placed on telemetry with close monitoring of her I&Os. She will be started on her home medications as well as aggressive pulmonary hygiene. Anticipate length of stay to be 1 to 2 days, possible discharge tomorrow. She does have some medication regimen that needs adjustment. This will be discussed with her primary care provider, Dr. Lai. We will resume home medications currently as listed and monitor blood pressure closely. Until discharge, we will continue to monitor the patient closely and treat appropriately. #[id number] #[id number] [facility]
[2016-06-19] MEDS ORDERED: NITROGLYCERIN 0.4 MG 25 EA TAB SL PRN (10:23)
[2016-06-19] MEDS ORDERED: MAGNESIUM HYDROXIDE 30 ML UD PO PRN (10:23)
[2016-06-19] MEDS ORDERED: ACETAMINOPHEN 325 MG TAB PO PRN (10:23)
[2016-06-19] MEDS ORDERED: IV SET AND CAP CHANGE INJ INJ SCH (10:30)
[2016-06-19] MEDS ORDERED: SODIUM CHLORIDE 0.9% 10 ML VIAL IV PRN (10:35)
[2016-06-19] MEDS ORDERED: LEVALBUTEROL NEBS 0.31 MG/3 ML VIAL NEB PRN (11:15)
[2016-06-19] MEDS ORDERED: ALBUTEROL SULFATE 2.5 MG/3 ML VIAL NEB SCH (12:00)
[2016-06-19] MEDS ORDERED: LEVALBUTEROL NEBS 1.25 MG/3 ML VIAL NEB PRN (12:01)
[2016-06-19] MEDS ORDERED: NON-FORMULARY MEDICATION 1 EA MIS (Tiotropium Bromide Monohydrate [Spiriva Respimat] 2 INH IN SCH (12:15)
[2016-06-19] MEDS ORDERED: NON-FORMULARY MEDICATION 1 EA MIS (Olmesartan Medoxomil [Benicar] 40 MG) PO SCH (12:15)
[2016-06-19] MEDS ORDERED: ARFORMOTEROL TARTRATE IN SCH (12:15)
[2016-06-19] MEDS ORDERED: NON-FORMULARY MEDICATION 1 EA MIS (Amlodipine Besylate [Amlodipine Besylate] 10 MG) PO SCH (12:15)
[2016-06-19] MEDS ORDERED: NON-FORMULARY MEDICATION 1 EA MIS (Metoprolol Tartrate [Metoprolol Tartrate] 50 MG) PO SCH (12:15)
[2016-06-19] MEDS ORDERED: NON-FORMULARY MEDICATION 1 EA MIS (Loratadine [Claritin] 10 MG) PO SCH (12:15)
[2016-06-19] MEDS ORDERED: BUDESONIDE IN SCH (12:30)
[2016-06-19] MEDS ORDERED: PANTOPRAZOLE SODIUM TAB 40 MG PO SCH (12:30)
[2016-06-19] MEDS: NON-FORMULARY MEDICATION 1 EA MIS (Tiotropium Bromide Monohydrate [Spiriva Respimat] 2 INH IN SCH (12:45)
[2016-06-19] MEDS: MONTELUKAST SODIUM 10 MG TAB PO SCH (12:46)
[2016-06-19] MEDS: CITALOPRAM HBR 20 MG TAB PO SCH (12:46)
[2016-06-19] MEDS: guaiFENesin ER TAB 600 MG TAB PO SCH (12:47)
[2016-06-19] MEDS: LEVALBUTEROL NEBS 0.63 MG/3 ML VIAL NEB SCH ×3 (12:52→20:00)
[2016-06-19] MEDS: CLOPIDOGREL 75 MG TAB PO SCH (12:55)
[2016-06-19] MEDS: NON-FORMULARY MEDICATION 1 EA MIS (Roflumilast [Daliresp] 500 MCG) PO SCH (12:56)
[2016-06-19] MEDS ORDERED: LEVALBUTEROL NEBS 0.31 MG/3 ML VIAL NEB SCH (16:00)
[2016-06-19] MEDS: ARFORMOTEROL TARTRATE IN SCH (20:00)
[2016-06-19] MEDS: BUDESONIDE IN SCH (20:00)
[2016-06-19] MEDS ORDERED: SODIUM CHLORIDE 0.9% (FLUSH) 10 ML SYG IV SCH (21:00)
[2016-06-19] MEDS ORDERED: diphenhydrAMINE HCL 25 MG CAP ONE (21:18)
[2016-06-19] MEDS ORDERED: cloNIDine HCL 0.2 MG TAB ONE (21:18)
[2016-06-19] MEDS ORDERED: amLODIPine BESYLATE 5 MG TAB ONE (23:53)
[2016-06-19] MEDS ORDERED: METOPROLOL TARTRATE 50 MG TAB ONE (23:54)
[2016-06-20] MEDS ORDERED: LEVOTHYROXINE SODIUM 0.025 MG TAB ONE (06:27)
[2016-06-20] MEDS ORDERED: LEVOTHYROXINE SODIUM 0.1 MG TAB ONE (06:28)
[2016-06-20] MEDS ORDERED: METOPROLOL TARTRATE 50 MG TAB PO SCH (07:30)
--- NOTE | 2016-06-20 08:03 | RAD ---
EXAM DESCRIPTION: XR CHEST 2 VIEWS CLINICAL HISTORY: CHF COMPARISON: June 19, 2016 FINDINGS: Two-view chest x-ray shows cardiac silhouette to be enlarged without pulmonary vascular congestion. Lungs are hyperinflated. Chronic appearing diffuse increased interstitial markings throughout the lungs are seen. Blunting of the costophrenic angles is seen bilaterally. Moderate calcifications of the thoracic aorta are noted. Multilevel disc degenerative changes of the spine are seen. Remote left-sided rib trauma is seen. IMPRESSION: Small bilateral pleural effusions are seen. Chronic appearing increased interstitial markings throughout the lungs are similar to previous exam. Electronically signed by: Bogdan Patel MD 06/20/2016 08:01
[2016-06-20] MEDS: LEVALBUTEROL NEBS 0.63 MG/3 ML VIAL NEB SCH ×2 (08:07→12:23)
[2016-06-20] MEDS: BUDESONIDE IN SCH (08:07)
[2016-06-20] MEDS: NON-FORMULARY MEDICATION 1 EA MIS (Tiotropium Bromide Monohydrate [Spiriva Respimat] 2 INH IN SCH (08:07)
[2016-06-20] MEDS: ARFORMOTEROL TARTRATE IN SCH (08:09)
[2016-06-20] MEDS ORDERED: METOPROLOL TARTRATE 25 MG TAB ONE (08:24)
[2016-06-20] MEDS ORDERED: POTASSIUM CHLORIDE 8 MEQ TAB ONE (08:25)
[2016-06-20] MEDS ORDERED: diphenhydrAMINE HCL 25 MG CAP PO PRN (08:43)
[2016-06-20] MEDS ORDERED: LORATADINE 10 MG TAB PO SCH (09:00)
[2016-06-20] MEDS ORDERED: amLODIPine BESYLATE 5 MG TAB PO SCH (09:00)
[2016-06-20] MEDS ORDERED: FUROSEMIDE 40 MG TAB PO SCH (09:00)
[2016-06-20] MEDS: CLOPIDOGREL 75 MG TAB PO SCH (09:09)
[2016-06-20] MEDS: CITALOPRAM HBR 20 MG TAB PO SCH (09:09)
[2016-06-20] MEDS: guaiFENesin ER TAB 600 MG TAB PO SCH (09:09)
[2016-06-20] MEDS: MONTELUKAST SODIUM 10 MG TAB PO SCH (09:14)
[2016-06-20] MEDS: VALSARTAN 80 MG TAB PO SCH ×2 (09:17→10:46)
[2016-06-20] MEDS ORDERED: NON-FORMULARY MEDICATION 1 EA MIS PO SCH ×2 (11:00)
[2016-06-20] MEDS: NON-FORMULARY MEDICATION 1 EA MIS (Roflumilast [Daliresp] 500 MCG) PO SCH (11:11)
[2016-06-20] MEDS ORDERED: NON-FORMULARY MEDICATION 1 EA MIS (Roflumilast [Daliresp] 500 MCG) PO SCH (12:00)
[2016-06-20 16:17] VITALS: BP 160/71; TEMP 98.5; O2SAT 91
--- NOTE | 2016-06-21 12:30 | DS ---
SUPERVISING PHYSICIAN: Fam Lai M.D. DISCHARGE DIAGNOSIS: 1. Acute on chronic exacerbation of congestive heart failure with elevated BNP on admission likely attributed to extensive hospitalization with multiple fluids and IV antibiotics within the last month treated with IV Lasix during admission showing improvement. 2. History of recent community acquired pneumonia resulting in sepsis requiring a lengthy hospitalization at [facility] and then rehabilitation at [facility]. 3. Chronic obstructive pulmonary disease end stage with a recent acute exacerbation noted with recent community acquired pneumonia and sepsis showing improvement and resolved. 4. Hypertension. 5. Anemia of chronic disease. 6. Coronary artery disease. 7. Stage IV breast cancer with metastasis under oncology treatment. 8. Hypothyroidism. 9. History of thyroid cancer status post thyroidectomy. 10. Mild chronic renal failure. 11. Solitary left kidney status post right nephrectomy. 12. Gastroesophageal reflux disease. 13. Generalized anxiety disorder and depression. HISTORY OF PRESENT ILLNESS: Ms. Vivar is a 76-year-old, female who presented initially to the Emergency Department early in the AM on day of admission for a nosebleed and then was discharged home. She went home and in the middle of the night, again, she had an incident of hypoxemia where her family noted she was severely dyspneic with O2 sats estimated to be in the 70s at home. The patient has a history of just being recently discharged from [facility] on 06/17/16 for treatment of severe community acquired pneumonia and continued rehabilitation. The family notes she was doing fairly well after admission, but again prior to admission to the Emergency Department on 06/19/16, she had a severe episode of dyspnea where she was unable to lay down due to shortness of breath. In the Emergency Department , laboratory studies were completed showing a white count of 10.0, hemoglobin 9.5, hematocrit 29.5, differential within normal limits. Coagulation studies were within normal limits with only a slightly elevated D-dimer of 285. Chemistries did reveal elevated BNP at 1310. Troponin 0.04. Electrolytes were within normal limits with BUN 32, creatinine 1.45. The patient was given 40 mg of Lasix IV and continued on oxygen as she was at home, resulting in improvement of O2 saturation into the mid-90s. EKG showed a sinus rhythm with no ST depression. Given the patients longstanding history of recent hospitalization and history of congestive heart failure and now an elevated BNP on admission and exacerbation of her congestive heart failure that has resulted in severe dyspnea with reported saturations in the 70s, the patient was admitted for observation for continued monitoring and treatment. She was admitted in stable condition. LABORATORY: White count on admission was 10.3, at discharge was 7.0. Hemoglobin and hematocrit were stable at discharge, hemoglobin 9.4, hematocrit 28.3, platelet count 262,000. Differential was within normal limits. Coagulation studies showed a normal PT and PTT and only slightly elevated D- dimer at 285. Chemistries showed initially a low potassium of 3.4, otherwise electrolytes were within normal limits. At discharge after Lasix, she did show an elevation in her sodium of 146, persistent low potassium at 3.4 with BUN 27, creatinine 1.34 at discharge. Osmolality was 295. Liver functions show to be within normal limits except for an elevated AST at 57, alkaline phosphatase 183. Admission BNP did show elevation at 1310, troponin was 0.04. Urine completed on admission was within normal limits. There were no microbiology specimen submitted. RADIOLOGY: She had a chest x-ray in the Emergency Department prior to admission and per radiology interpretation there was noted a small bilateral pleural effusion and chronic-appearing interstitial markings throughout the lungs similar to previous exams as noted on 06/19/16. HOSPITAL COURSE: Ms. Vivar was admitted as noted in the History of Present Illness for acute exacerbation of congestive heart failure. She was given Lasix in the Emergency Department. She was previously on beta blockers and angiotensin receptor blockers. She had good results with the 40 of Lasix and on the morning of discharge had shown good clinical improvement. The patient did have an anxiety attack through the middle of the night and was quite anxious on the morning of discharge. Dr. Lai was able to visit with the family and it was felt that the patient was clinically stable enough to go home to continue with outpatient treatment. There is consideration for placing the patient on hospice as she does have end stage COPD. She does have continued physical therapy 3 days a week through [facility] and will continue with that at time of discharge. PLAN: The patient is discharged on 06/20/16 to continue with outpatient treatment plan to include rehabilitation through [facility]. She is to resume all of her medications as noted on the electronic medical records and MAR. She was encouraged to increase her activity as per Physical Therapy and as tolerated. Her diet was to be low salt and cardiac in nature. She was discouraged to intake more than 1800 mL of fluid in a 24 hour period and to monitor her weight closely. She was instructed to take new medications as prescribed and to return to the hospital should she not have any improvement in her symptoms. She is to see Dr. Lai in 5 to 10 days after discharge or sooner if needed. Mention of hospice transition is in place and can be continued in the outpatient setting through Dr. Lai' office. The patient did decide to make herself a DNR and this was finished prior to dismissal from the hospital. At time of discharge, medications prescribed included: 1. Lorazepam 0.5 mg, 1 mg as needed for anxiety, #60. All other medications were continued as previous. She was given a prescription for her medications that were not provided at time of discharge from [facility] which included Hydralazine. I did stop her Clonidine that was scheduled 3 times a day 0.2 mg. She will need close followup and management of her blood pressure. She was encouraged to watch her blood pressure closely and to notify Dr. Lai of any concerns in regards to blood pressure management. She was discharged in stable condition. Condition was fair at time of discharge. #[id number] [facility]
--- NOTE | 2016-06-25 13:45 | RAD ---
Clinical History : shortness of breath, cough, hx pneumonia , MAIN Exam : Portable AP view of the chest 06/19/2016 5:38 AM GERENTOLOGICAL PHYSIOTHERAPIST Comparisons : Portable AP view of the chest May 30, 2016 Findings : Severe emphysematous changes are noted throughout the lungs bilaterally.There is flattening of the diaphragms. There is increasing patchy bibasilar airspace disease.. The heart is stable in size. The mediastinal contours are normal in appearance. There are vascular calcifications along the aortic arch. The thoracic spine is age appropriate. The shoulders are unremarkable. Limited evaluation of the upper abdomen demonstrates no gross abnormalities. Impression: 1. Increasing patchy bibasilar airspace disease, likely atelectasis.2. Stable severe emphysema. Electronically signed by: Juarez Mckeon MD 06/19/2016 6:51 AM GERENTOLOGICAL PHYSIOTHERAPIST
--- NOTE | 2016-06-30 00:14 | RAD ---
Clinical History : shortness of breath, cough, hx pneumonia , MAIN Exam : Portable AP view of the chest 06/19/2016 5:38 AM DIRECTOR OF ACADEMIC SUPPORT Comparisons : Portable AP view of the chest May 30, 2016 Findings : Severe emphysematous changes are noted throughout the lungs bilaterally.There is flattening of the diaphragms. There is increasing patchy bibasilar airspace disease.. The heart is stable in size. The mediastinal contours are normal in appearance. There are vascular calcifications along the aortic arch. The thoracic spine is age appropriate. The shoulders are unremarkable. Limited evaluation of the upper abdomen demonstrates no gross abnormalities. Impression: 1. Increasing patchy bibasilar airspace disease, likely atelectasis.2. Stable severe emphysema. Electronically signed by: Juarez Mckeon MD 06/19/2016 6:51 AM DIRECTOR OF ACADEMIC SUPPORT
== END 2016-06-20 16:09 | disposition home or self-care (01) ==
LOC: ER 05:33 → INTOOBSV 07:43 → MS 07:43
PROVIDERS: ADMIT Nurse Practitioner Family; ATTEND Nurse Practitioner Family
DX: I50.33 Acute on chronic diastolic (congestive) heart failure (principal); I13.0 Hypertensive heart and chronic kidney disease with heart failure and stage 1 through stage 4 chronic kidney disease, or unspecified chronic kidney disease; C79.51 Secondary malignant neoplasm of bone; I27.81 Cor pulmonale (chronic); J44.9 Chronic obstructive pulmonary disease, unspecified; E03.9 Hypothyroidism, unspecified; I25.10 Atherosclerotic heart disease of native coronary artery without angina pectoris; N18.9 Chronic kidney disease, unspecified; M10.9 Gout, unspecified; D63.8 Anemia in other chronic diseases classified elsewhere; R09.02 Hypoxemia; R06.02 Shortness of breath; K21.9 Gastro-esophageal reflux disease without esophagitis; F41.1 Generalized anxiety disorder; I25.2 Old myocardial infarction; Z90.5 Acquired absence of kidney; Z99.81 Dependence on supplemental oxygen; Z79.02 Long term (current) use of antithrombotics/antiplatelets; Z79.51 Long term (current) use of inhaled steroids; Z79.899 Other long term (current) drug therapy; Z88.8 Allergy status to other drugs, medicaments and biological substances; Z85.3 Personal history of malignant neoplasm of breast; Z85.850 Personal history of malignant neoplasm of thyroid; Z87.891 Personal history of nicotine dependence; Z87.01 Personal history of pneumonia (recurrent); Z95.5 Presence of coronary angioplasty implant and graft; Z86.73 Personal history of transient ischemic attack (TIA), and cerebral infarction without residual deficits; Z90.49 Acquired absence of other specified parts of digestive tract; Z90.12 Acquired absence of left breast and nipple
CPT/HCPCS: 36415; 71010; 71020; 80048 ×2; 80076; 81001; 82550; 82553; 83880; 84484; 85014; 85018; 85025 ×2; 85379; 85610; 85730; 93005; 94640 ×9; 94760 ×6; 96374; 99284; J1940; J7614 ×6; Q0163

== ENCOUNTER → 2016-08-11 | Outpatient (CLI) | payer MEDICARE, OTHER ==
--- NOTE | 2016-08-12 09:36 | MAM ---
History: Well woman exam. Personal history of breast cancer status post left mastectomy. Date of exam: 08/11/2016 Services provided: Right full field digital screening mammography. CAD, the images were reviewed with R2 computer aided detection. FINDINGS: Glandular tissue is scattered glandular contour with increased mammographic density. Exam is compared with 2014 study. There are scattered calcifications present throughout the glandular tissue, particularly in the upper outer aspect that are better demonstrated since the 2016 exam. Stable nodular glandular pattern is shown since 2014. No architectural distortion or clustered microcalcification. IMPRESSION: Benign exam Recommendation: Routine annual mammography BIRAD CATEGORY: 2 BENIGN Electronically signed by: Ethel Armando MD 08/12/2016 9:35 AM CDT
== END | disposition home or self-care (01) ==
LOC: MAMMO 13:06
PROVIDERS: ATTEND Family Medicine
DX: Z12.31 Encounter for screening mammogram for malignant neoplasm of breast (principal)

== ENCOUNTER → 2016-09-16 | Outpatient (CLI) | payer MEDICARE, OTHER ==
--- NOTE | 2016-09-17 14:52 | CT ---
EXAM DESCRIPTION: Chest w/Contrast CLINICAL HISTORY: 76 years,Female,CHEST PAIN COMPARISON: January 29, 2016 TECHNIQUE: Multiple axial helical tomographic images were obtained of the chest with IV contrast, then reconstructed in the sagittal and coronal plane. This exam was performed using radiation doses that are As Low As Reasonably Achievable (ALARA). FINDINGS: Lung hollis demonstrate a few tiny 1 to 2 mm nodular densities scattered throughout the lung hollis which appear stable. The largest one is about 2 mm in the right upper lobe anteriorly along the horizontal fissure which is a small granuloma. The others are too small to characterize. There is a new small region of about 2 mm in size of interstitial thickening in the left upper lobe. There is also mild to moderate centrilobular emphysematous changes worse in the apices. And hyperinflation lung hollis. No pneumothoraces. Mediastinum demonstrates no adenopathy or masses. Heart size and pulmonary vascularity are unremarkable. Upper abdominal organs included in the exam demonstrate four subtle low-density lesions in the right lobe and one in the left lobe. Up to about 1.5 cm in size. These are not seen in prior study but prior study was not with IV contrast. Soft tissues and bony elements demonstrate numerous lytic and blastic lesions throughout all the bony elements which are much more numerous and larger in size in prior study. 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 IMPRESSION: Numerous blastic and lytic lesions throughout the bony elements which is much more greater than prior study indicating metastatic disease. Patient has had a prior left mastectomy so this could be breast. And also a few possibly new low-density lesions in liver worrisome for metastatic disease. Several tiny 1 to 2 mm pulmonary nodules stable most likely granulomatous disease rather than metastatic disease. Moderate centrilobular images changes. 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 Small region seen in the left upper lobe of mild interstitial changes. This is nonspecific and new since prior study. This could be anything from postinfectious changes/scarring to early infiltrate or metastatic disease. Electronically signed by: Ja Chiu MD 09/17/2016 2:52 PM CDT
== END | disposition home or self-care (01) ==
LOC: CT 15:33
PROVIDERS: ATTEND Family Medicine
DX: R07.89 Other chest pain (principal)

== ENCOUNTER 2016-11-30 15:32 | Emergency (ER) | payer MEDICARE, OTHER ==
[2016-11-30] MEDS ORDERED: MORPHINE SULFATE INJ 10 MG/ML VIAL IV ONE ×2 (15:49→19:16)
[2016-11-30] MEDS ORDERED: MORPHINE SULFATE INJ 10 MG/ML VIAL ONE (15:52)
--- NOTE | 2016-11-30 15:54 | ED.PDOC ---
History of Present Illness - General Chief Complaint: Respiratory Problem Stated Complaint: shortness of breath ,back pain Time Seen by Provider: 11/30/16 15:33 Source: patient, RN notes reviewed, Vital Signs reviewed, family - Daughter Exam Limitations: no limitations - History of Present Illness Initial Comments: Patient presents to the ER via EMS with c/o of low back pain X2 days. Hospice nurse started her of Fentanyl 25mcg patch and Flexeril w/o improvement in her pain. She has metastatic breast cancer but @ last check was not in her low back. Pain is across her whole low back. Can't really describe the pain. No radiation of pain. She was also noted to be hypoxic by EMS. She is on O2 at home and has COPD and CHF. Daughter reports she had not been doing her breathing treatments regularly due to R side pain but has restarted them as of 3 days ago. She has started coughing up some yellow sputum. Timing/Duration: constant - 2 days Severity: severe Improving Factors: nothing Worsening Factors: movement Associated Symptoms: cough Allergies/Adverse Reactions: Allergies Thiothixene [From Navane] Allergy (Unknown, Verified 04/28/16 18:53) Zolpidem [From Ambien] Allergy (Unknown, Verified 04/28/16 18:53) Hydrocodone Allergy (Verified 11/30/16 16:53) Lorazepam [From Ativan] Allergy (Verified 06/18/16 21:26) Tramadol Allergy (Verified 11/30/16 15:48) Diphenhydramine [From Benadryl] Adverse Reaction (Mild, Verified 04/28/16 18:53) Other Pt states that it makes her "loopy" per nurses notes. Temazepam [From Restoril] Adverse Reaction (Verified 04/28/16 18:53) Home Medications: Ambulatory Orders Arformoterol Tartrate [Brovana] 1 puff IN BID 10/30/13 Budesonide Inhaler [Pulmicort Flexhaler] 2 puff IN BID 10/30/13 Calcium Carbonate-Cholecalcife [Caltrate 600+D 600-800 mg-Unit] 1 tab PO BID Citalopram Hydrobromide [Celexa] 20 mg PO DAILY 10/30/13 Clopidogrel Bisulfate [Plavix] 75 mg PO DAILY 10/30/13 Coenzyme X82-Ltcz Oil-Vitamin [Co-Q 10 [place]-3 Fish Oil] 1 cap PO DAILY Levalbuterol Nebs [Xopenex NEBS] 1.25 mg NEB Q4H PRN 10/30/13 Levothyroxine Sodium [Synthroid] 125 mcg PO ACBK 10/30/13 Multiple Vitamins W/ Minerals [Centrum Silver] 1 ea PO DAILY 10/30/13 Pantoprazole Tablet [Protonix] 40 mg PO ACBK 10/30/13 Ascorbic Acid [Vitamin C] 1,000 mg PO DAILY 12/11/15 Cholecalciferol [Vitamin D-3] 1,000 unit PO BID 12/11/15 Cyanocobalamin [B-12 Compliance Injection] 1,000 mcg INJ MONTHLY 12/11/15 Roflumilast [Daliresp] 500 mcg PO DAILY 12/11/15 guaiFENesin ER TAB [Mucinex Tab] 600 mg PO BID #14 tab 12/14/15 Montelukast [Singulair] 10 mg PO DAILY 05/30/16 Amlodipine Besylate 10 mg PO DAILY 06/19/16 Furosemide Tab [Lasix Tab] 40 mg PO DAILY 06/19/16 Levalbuterol Nebs [Xopenex NEBS] 0.63 mg NEB QID 06/19/16 Loratadine [Claritin] 10 mg PO DAILY 06/19/16 Olmesartan Medoxomil [Benicar] 40 mg PO DAILY 06/19/16 Potassium Chloride [Potassium Chloride ER] 8 meq PO DAILYBK 06/19/16 Tiotropium [place] Monohydrate [Spiriva Respimat] 2 inh IN DAILY 06/19/16 Hydralazine HCl 50 mg PO TID #90 tab 06/20/16 Metoprolol Tartrate 50 mg PO BID #60 tab 06/20/16 Cyclobenzaprine HCl [Flexeril] 5 mg PO TID 11/30/16 Ferrous Gluconate [Fergon] 27 mg PO DAILY 11/30/16 Tamoxifen Citrate 20 mg PO DAILY 11/30/16 fentaNYL PATCH 25 MCG/HR [Duragesic Patch 25 MCG/HR] 25 mcg TD Q72H 11/30/16 Review of Systems - Review of Systems Constitutional: States: malaise, weakness EENTM: States: no symptoms reported Respiratory: States: cough Cardiology: States: no symptoms reported Gastrointestinal/Abdominal: States: no symptoms reported Musculoskeletal: States: see HPI, back pain Skin: States: no symptoms reported Neurological: States: no symptoms reported All other Systems: No Change from Baseline Past Medical History (General) - Patient Medical History Hx Seizures: No Hx Stroke: Yes Hx Asthma: Yes Hx of COPD: Yes Hx Cardiac Disorders: Yes Hx Congestive Heart Failure: Yes Hx Pacemaker: No Hx Hypertension: Yes Hx Thyroid Disease: Yes Hx Diabetes: No Hx Gastroesophageal Reflux: Yes Hx Renal Disease: Yes Hx Cancer: Yes - Breast with metastasis to bone Hx MRSA: No Surgical History: appendectomy, cholecystectomy, tonsillectomy, Hysterectomy - Vaccination History Hx Tetanus, Diphtheria Vaccination: Yes Hx Influenza Vaccination: No Hx Pneumococcal Vaccination: No - Social History Hx Tobacco Use: Yes Hx Alcohol Use: No Hx Substance Use: No Hx Physical Abuse: No Hx Emotional Abuse: No Family Medical History - Family History Mother Family History: No Known Hx Family Congestive Heart Failure: Yes Hx Family Diabetes: Yes Father Living Status: Hx Family Asthma: No Hx Family Congestive Heart Failure: No Hx Family Hypertension: No Hx Family Stroke: No Hx Family Diabetes: No Hx Family Cancer: Yes Physical Exam - Physical Exam General Appearance: Alert, Frail, No apparent distress Neck: non-tender, supple, normal inspection Respiratory: no respiratory distress, decreased breath sounds - bilateral bases Cardiovascular/Chest: regular rate, rhythm, systolic murmur Gastrointestinal/Abdominal: normal bowel sounds, soft Back Exam: no vertebral tenderness, muscle spasm, other - tender bilateral paraspinous muscles R>L Extremity: normal inspection Neurologic: alert, normal mood/affect, oriented x 3 Skin Exam: normal color, warm/dry Comments: Vital Signs 11/30/16 11/30/16 15:39 15:49 Temperature 98.2 F Pulse Rate [ 77 Left Brachial] Respiratory 20 24 Rate Blood Pressure 113/63 [Left Arm] O2 Sat by Pulse 98 Oximetry Progress - Progress Progress: 11/30/16 17:34 BUN and Cr are elevated. Daughter reports they are trying to dry her out due to her CHF/valved problem. Will give 500cc @ 250/hr and re-evaluate. 11/30/16 19:17 Patient is feeling better and feeling better. Will give another dose of Morphine to get her through the night until she gets a higher dose Fentanyl patch from Hospice. - EKG/XRAY/CT XRAY: L-Spine: no acute change per radiologist. - No acute change per Radiologist Xray Comments: Chest: No acute change per Radiologist Departure - Departure Clinical Impression: Strain, lumbosacral Qualifiers: Encounter type: initial encounter Qualified Code(s): S39.012A - Strain of muscle, fascia and tendon of lower back, initial encounter Time of Disposition: 19:19 Disposition: Discharge to Home or Self Care Condition: Good Departure Forms: ED Discharge - Pt. Copy, Patient Portal Self Enrollment Instructions: DI for Low Back Pain Diet: resume usual diet Activity: increase activity as tolerated Referrals: Fam Lai MD [Primary Care Provider] - 1-2 Weeks Home Medications: Ambulatory Orders Arformoterol Tartrate [Brovana] 1 puff IN BID 10/30/13 Budesonide Inhaler [Pulmicort Flexhaler] 2 puff IN BID 10/30/13 Calcium Carbonate-Cholecalcife [Caltrate 600+D 600-800 mg-Unit] 1 tab PO BID Citalopram Hydrobromide [Celexa] 20 mg PO DAILY 10/30/13 Clopidogrel Bisulfate [Plavix] 75 mg PO DAILY 10/30/13 Coenzyme C64-Ionh Oil-Vitamin [Co-Q 10 [place]-3 Fish Oil] 1 cap PO DAILY Levalbuterol Nebs [Xopenex NEBS] 1.25 mg NEB Q4H PRN 10/30/13 Levothyroxine Sodium [Synthroid] 125 mcg PO ACBK 10/30/13 Multiple Vitamins W/ Minerals [Centrum Silver] 1 ea PO DAILY 10/30/13 Pantoprazole Tablet [Protonix] 40 mg PO ACBK 10/30/13 Ascorbic Acid [Vitamin C] 1,000 mg PO DAILY 12/11/15 Cholecalciferol [Vitamin D-3] 1,000 unit PO BID 12/11/15 Cyanocobalamin [B-12 Compliance Injection] 1,000 mcg INJ MONTHLY 12/11/15 Roflumilast [Daliresp] 500 mcg PO DAILY 12/11/15 guaiFENesin ER TAB [Mucinex Tab] 600 mg PO BID #14 tab 12/14/15 Montelukast [Singulair] 10 mg PO DAILY 05/30/16 Amlodipine Besylate 10 mg PO DAILY 06/19/16 Furosemide Tab [Lasix Tab] 40 mg PO DAILY 06/19/16 Levalbuterol Nebs [Xopenex NEBS] 0.63 mg NEB QID 06/19/16 Loratadine [Claritin] 10 mg PO DAILY 06/19/16 Olmesartan Medoxomil [Benicar] 40 mg PO DAILY 06/19/16 Potassium Chloride [Potassium Chloride ER] 8 meq PO DAILYBK 06/19/16 Tiotropium [place] Monohydrate [Spiriva Respimat] 2 inh IN DAILY 06/19/16 Hydralazine HCl 50 mg PO TID #90 tab 06/20/16 Metoprolol Tartrate 50 mg PO BID #60 tab 06/20/16 Cyclobenzaprine HCl [Flexeril] 5 mg PO TID 11/30/16 Ferrous Gluconate [Fergon] 27 mg PO DAILY 11/30/16 Tamoxifen Citrate 20 mg PO DAILY 11/30/16 fentaNYL PATCH 25 MCG/HR [Duragesic Patch 25 MCG/HR] 25 mcg TD Q72H 11/30/16
--- NOTE | 2016-11-30 16:37 | RAD ---
EXAM DESCRIPTION: Chest,2 Views CLINICAL HISTORY: 76 years Female Hypoxia/decreased breath sounds at bases COMPARISON: 06/20/2016, chest CT 09/16/2016 FINDINGS: Stable cardial mediastinal silhouette. Calcification in aorta. Prominent interstitial markings likely related to senescent lung. Blunting of both costophrenic angles which appears similar to the prior examination and appears likely related to scarring. There are mixed sclerotic and lytic lesions in the osseous structures consistent with metastatic disease. This was also present on the previous examination. No acute infiltrate noted. IMPRESSION: Numerous lytic and blastic lesions in the osseous structures particularly in the thoracic spine consistent with widespread osseous metastatic disease Pulmonary hyperinflation and changes of emphysema Interstitial infiltrates likely reflecting senescent lung Blunting of both posterior sulci which is likely as a result of scarring. Small amount of basilar atelectasis not excluded Electronically signed by: Ave Galloway 11/30/2016 4:36 PM CDT
--- NOTE | 2016-11-30 16:39 | RAD ---
EXAM DESCRIPTION: Lumbar Spine 3 Views CLINICAL HISTORY: 76 years ,Female Low back pain w/ hx of metastatic breast ca COMPARISON: MRI 02/06/2014 TECHNIQUE: Three views FINDINGS: There is leftward convexity curvature in the thoracic and lumbar spine. Mixed lytic and sclerotic lesions are present, most notable in the pelvis. Postsurgical changes at the L5-S1 level with narrowing of the disc interspace. Vascular calcification. No acute fracture is noted. There is also grade 1 anterolisthesis of L4 on L5 with narrowing of the disc interspace, similar to the previous study. IMPRESSION: No acute fracture Degenerative changes at L4-5 and L5-S1 with previous fusion Mixed lytic and sclerotic lesions most notable in the pelvis consistent with known metastatic disease Electronically signed by: Ave Galloway 11/30/2016 4:38 PM CDT
[2016-11-30] MEDS ORDERED: SODIUM CHLORIDE 0.9% 1000ML 0 ML ONE (17:30)
[2016-11-30] MEDS ORDERED: SODIUM CHLORIDE 0.9% 1000ML 1,000 ML IVS PRN (17:33)
[2016-11-30 19:58] VITALS: BP 133/70; TEMP 97.1; O2SAT 99
== END 2016-11-30 19:57 | disposition home or self-care (01) ==
LOC: ER 15:32
DX: S39.012A Strain of muscle, fascia and tendon of lower back, initial encounter (principal); J44.9 Chronic obstructive pulmonary disease, unspecified; C50.919 Malignant neoplasm of unspecified site of unspecified female breast; C79.51 Secondary malignant neoplasm of bone; I11.0 Hypertensive heart disease with heart failure; I50.9 Heart failure, unspecified; E07.9 Disorder of thyroid, unspecified; K21.9 Gastro-esophageal reflux disease without esophagitis; Z86.73 Personal history of transient ischemic attack (TIA), and cerebral infarction without residual deficits; Z99.81 Dependence on supplemental oxygen; Z87.891 Personal history of nicotine dependence; Z79.899 Other long term (current) drug therapy; Z88.8 Allergy status to other drugs, medicaments and biological substances; X58.XXXA Exposure to other specified factors, initial encounter
CPT/HCPCS: 36415; 71020; 72100; 80048; J2270

== ENCOUNTER 2016-12-02 14:06 | Inpatient (IN) | payer OTHER ==
[2016-12-02] MEDS ORDERED: SODIUM CHLORIDE 0.9% (FLUSH) 10 ML SYG IV PRN (14:08)
[2016-12-02] MEDS: LEVALBUTEROL NEBS 0.63 MG/3 ML VIAL NEB SCH ×2 (14:18→20:38)
[2016-12-02] MEDS ORDERED: IV SET AND CAP CHANGE INJ INJ SCH (14:30)
[2016-12-02] MEDS ORDERED: LEVALBUTEROL NEBS 0.63 MG/3 ML VIAL NEB ONE (14:50)
[2016-12-02] MEDS: SODIUM CHLORIDE 0.9% 500ML 500 ML IVS PRN (15:02)
[2016-12-02] MEDS: MORPHINE PCA 1 MG/ML 100 ML BAG IVPB SCH (15:03)
--- NOTE | 2016-12-02 17:23 | HP ---
HISTORY OF PRESENT ILLNESS: This 76 year-old white female is admitted as a hospice inpatient for care and comfort because of intractable pain from breast cancer with metastatic spread to the bones now affecting her ability to breathe and exacerbating her chronic obstructive pulmonary disease. She has been at home on hospice but has been unable to receive the benefit of pain relief even with increasing doses of MS Contin up to 90 mg a day. She has been eating her food fairly well up until yesterday but her appetite has gone down today. She is admitted to the hospital as a hospice inpatient for specific care including morphine via the COTTAGE SUPERVISOR pump and continued inhalation treatments to assist with significant emphysema with special emphasis on pain control. The family is well aware that this may be a terminal event and they are very supportive because of the magnitude of the pain that the patient has been going through in recent weeks. She has had a full compliment of input from Oncology and electrical automation engineer and imcu specialist. The patient is admitted to inpatient with [facility] for specific care and comfort measures. Please refer to Orders. PAST MEDICAL HISTORY: 1. History of recurring episodes of exacerbations of congestive heart failure primarily diastolic in nature. 2. History of chronic obstructive pulmonary disease with exacerbations. 3. History of recurring acquired pneumonias. 4. History of hypertension. 5. Hypothyroidism. 6. History of coronary artery disease. 7. History of chronic renal insufficiency. 8. History of gout. 9. History of breast cancer diagnosed in 2013 stage IV with bone metastasis and liver followed by Oncology. 10. History of thyroid cancer with surgical resection and chronic anemia. PAST SURGICAL HISTORY: 1. Appendectomy. 2. Hysterectomy with bilateral salpingo-oophorectomy. 3. Tonsillectomy and adenoidectomy. 4. Cholecystectomy. 5. Mastectomy in 2013 of the left breast. 6. Thyroidectomy. 7. Right nephrectomy secondary to benign tumor. CURRENT MEDICATIONS: Please refer to nurses' notes for a list of home medicines verified. ALLERGIES: THIOTHIXENE, ZOLPIDEM, LORAZEPAM, DIPHENHYDRAMINE AND TEMAZEPAM. FAMILY HISTORY: Significant for coronary artery disease and cancer. SOCIAL HISTORY: The patient is a and lives in [place]. She has had a chronic history of tobacco abuse having quit about 35 years ago. REVIEW OF SYSTEMS: The patient is unable to adequately fill in her most recent review of systems because of her obtunded state. Significant weight loss is evident though. PHYSICAL EXAMINATION: VITAL SIGNS: Afebrile. See nurses' notes. Weight is pending. GENERAL: The patient is resting in the bed with head elevated. She does have audible wheezing especially upon exhalation. HEENT: NECK: CHEST: Lungs have diminished breath sounds with some significant expiratory wheezing bilaterally more prominent on the right than the left. CARDIOVASCULAR: Heart tones are fairly regular without any significant gallop. ABDOMEN: Soft with bowel tones slightly decreased possibly related to some of the medications she has been taking. NEUROLOGIC: She is moving all extremities. She is able to open her eyes at times and answer a few questions, but tends to go right back to sleep. History is obtained from talking to daughter and son. The patient's sister is also present. LABORATORY: None ordered at this time. ASSESSMENT: 1. Advanced breast carcinoma with stage IV distant metastatic spread to bones , liver and possibly to the kidney. 2. Intolerable pain from bony metastasis especially in the mid back requiring parenteral analgesia. 3. Chronic obstructive pulmonary disease - end stage with hypoxia and requiring medication nebulizers and bronchodilators, etc. 4. Hypoxia. 5. Chronic congestive heart failure with recurring exacerbations. 6. History of pneumonias in the past. 7. History of hypertension. 8. History of hypothyroidism on supplementation. 9. History of coronary artery disease. 10. History of gout. 11. History of thyroid cancer with thyroidectomy. 12. History of chronic anemia. PLAN: The patient is admitted to the hospital for hospice inpatient care and comfort. At this time, COTTAGE SUPERVISOR analgesia with morphine is to be initiated. She will be getting around the clock medication nebulizers to assist with fairly significant partially reversible airway disease and her COPD. Her general condition is terminal and family is well aware. She is a DNR at this time. Special attention to pain relief and supportive care in progress. Close followup with Dr. Lyman as the hospice physician and with Dr. Lai as well as her primary care provider. #[id number] [facility]
[2016-12-02] MEDS ORDERED: fentaNYL PATCH 25 MCG/HR 1 EA PATCH TD SCH (19:30)
[2016-12-02] MEDS ORDERED: LEVALBUTEROL NEBS 1.25 MG/3 ML VIAL NEB PRN (20:58)
[2016-12-02] MEDS ORDERED: SCOPOLAMINE PATCH 1.5MG 1 EA TD SCH (21:00)
[2016-12-02] MEDS ORDERED: NON-FORMULARY MEDICATION 1 EA MIS (Metoprolol Tartrate [Metoprolol Tartrate] 50 MG) PO SCH (21:00)
[2016-12-02] MEDS ORDERED: ARFORMOTEROL TARTRATE IN SCH (21:00)
[2016-12-03] MEDS ORDERED: PANTOPRAZOLE SODIUM TAB 40 MG PO SCH (07:00)
[2016-12-03] MEDS ORDERED: LEVALBUTEROL NEBS 0.63 MG/3 ML VIAL NEB ONE (08:17)
[2016-12-03] MEDS: LEVALBUTEROL NEBS 0.63 MG/3 ML VIAL NEB SCH (09:58)
[2016-12-03] MEDS ORDERED: SCOPOLAMINE PATCH 1.5MG 1 EA TD ONE (13:12)
[2016-12-03] MEDS: SODIUM CHLORIDE 0.9% 500ML 500 ML IVS PRN (15:49)
[2016-12-04 05:21] VITALS: BP 113/64; TEMP 99.5
[2016-12-04] MEDS: MORPHINE PCA 1 MG/ML 100 ML BAG IVPB SCH (08:56)
[2016-12-04 16:53] VITALS: O2SAT 84
[2016-12-04] MEDS: SODIUM CHLORIDE 0.9% 500ML 500 ML IVS PRN (17:04)
== END 2016-12-04 22:00 | disposition expired | DRG 948 ==
LOC: MS 14:06
PROVIDERS: ADMIT Emergency Medicine; ATTEND Emergency Medicine
DX: G89.3 Neoplasm related pain (acute) (chronic) (principal); C79.51 Secondary malignant neoplasm of bone; C78.7 Secondary malignant neoplasm of liver and intrahepatic bile duct; I50.32 Chronic diastolic (congestive) heart failure; I13.0 Hypertensive heart and chronic kidney disease with heart failure and stage 1 through stage 4 chronic kidney disease, or unspecified chronic kidney disease; J44.9 Chronic obstructive pulmonary disease, unspecified; R09.02 Hypoxemia; I11.0 Hypertensive heart disease with heart failure; E03.9 Hypothyroidism, unspecified; N18.9 Chronic kidney disease, unspecified; M10.9 Gout, unspecified; Z51.5 Encounter for palliative care; Z66 Do not resuscitate; Z85.3 Personal history of malignant neoplasm of breast; Z85.850 Personal history of malignant neoplasm of thyroid; Z90.5 Acquired absence of kidney; Z90.12 Acquired absence of left breast and nipple; Z88.8 Allergy status to other drugs, medicaments and biological substances; Z87.891 Personal history of nicotine dependence